=== PATIENT | male | born 1945 | race Caucasian/White ===

== ENCOUNTER → 2016-12-25 | Day surgery (SDC) | payer MEDICARE, BC ==
[~2016-12-25] VITALS: Ht 175.3 cm; Wt 73.0 kg
[~2016-12-25] MED LIST: BUPIVACAINE HCL PF 0.5% 30 ML VIAL ONE; CEPH-460 PO; CHLORHEXIDINE GLUCONATE 2 % 1 PACK (2 CLOTHS) TOPICAL PRN; COLC1TAB7 PO; INSULIN HUMAN REGULAR 1,000 UNITS/10 ML VIAL SQ PRN; LACTATED RINGER'S 1000 ML IV PRN; LIDOCAINE HCL 2% 50 ML VIAL ONE; LOSA100T PO; METO25TA3 PO; METOPROLOL TARTRATE 25 MG TAB PO PRN; MIDAZOLAM HCL 2 MG/2 ML VIAL ONE; NEOMYCIN/POLYMYXIN 1 ML G.U. IRRIGANT ONE; NORC5TAB PO; ONDANSETRON HCL 4 MG/2 ML VIAL IV PUSH ONE; POVIDONE IODINE 5% (ANTISEPSIS KIT) 4 APPLICATIONS EACH NARE PRN; PROPOFOL 200 MG/20 ML AMP IV ONE; SODIUM CHLORID 0.9% 500 ML IV PRN; ceFAZolin 1,000 MG/NS 100 ML IV SCH
[2016-12-25 11:30] LABS: MEAN CELL VOLUME 94.7 FL (80.0-100.0); MEAN CORPUSCULAR HEMOGLOBIN 31.5 PG (27.0-34.0); MEAN CORPUSCULAR HGB CONC 33.3 % (32.0-36.0); PLATELET COUNT 241 TH/MM3 (150-450); RED BLOOD COUNT 4.33 MIL/MM3 (4.50-5.90); RED CELL DISTRIBUTION WIDTH 13.4 % (11.6-17.2); REVIEW FLAG FINAL; WHITE BLOOD COUNT 7.6 TH/MM3 (4.0-11.0)
--- NOTE | 2016-12-25 12:57 | MP ---
cc: JOHN MICHELLE III, M.D. DATE OF SURGERY 12/25/2016 PREOPERATIVE DIAGNOSIS Mass left hand. PROCEDURE 1. Left hand mass and foreign body removal 2. Excisional biopsy left hand SURGEON John Michelle III, MD PROCEDURE The patient was brought to the operating room, placed supine on the operating table. After the correct site and side of surgery were verified by members of each team in the room multiple times including the patient and myself and after preoperative markings and preoperative written consent were verified by everyone, and after an adequate preoperative time out was performed to everyone's satisfaction and after adequate IV sedation had been achieved, the left upper extremity prepped and draped in the traditional sterile surgical fashion. A 50/50 mixture of 2% plain lidocaine, 0.5% Marcaine was infiltrated in the skin and subcutaneous tissue on the dorsal aspect of the hand and to the possible mass. The limb was exsanguinated using an Prasad wrap and a highly placed well-padded axillary tourniquet was inflated to 200 mmHg for 12 minutes. A longitudinally oriented incision dorsally overlying the mass in between the second and third extensor tendons was made and carried down through skin and subcutaneous tissue. Bipolar electrocautery was used as needed. The extensor tendons were retracted in opposite direction leaving the commissure between them intact. Immediately evident was some brawny appearing fatty tissue which was then sharply and bluntly dissected free from the surrounding tissue and during this a large 2 cm foreign body came out from the center of this mass of tissue. This will be given to the patient and his in a sterile specimen cup. There was a small amount of purulence so this was then cultured and passed off the field as specimen. The brawny appearing foreign body reaction was fully excised and passed off the field as a specimen. There were no other sounds inflammatory abnormalities identified. The extensor tendons were all intact and healthy. Thorough irrigation was performed with saline. The skin edges were then loosely reapproximated using interrupted simple and horizontal mattress 4-0 nylon sutures. The hand and arm were thoroughly cleansed and dried. Betadine Adaptic dressings were applied on top of the wounds followed by bulky soft dressing. The patient was awakened from anesthesia and transported to the Post Anesthesia Care Unit awake and in stable condition. Sponge, needle and instrument counts were correct at the end of the case as reported by nurses room. IDENTIFICATION At MD SONAL Vasquez III/DAIANA /12:34 PM /12:40 PM
[2016-12-25 13:45] VITALS: BP 108/64; PULSE 61; RESP 16; TEMP 97.7; O2SAT 100
--- NOTE | 2016-12-25 14:33 | EKG ---
Date Performed: 12/25/2016 Time Performed: 11:08:10 PTAGE: 71 years EKG: SINUS BRADYCARDIA BORDERLINE ECG NO PREVIOUS TRACING DOCTOR: Severiano Portillo Interpretating Date/Time 12/25/2016 14:31:48
== END | disposition home or self-care (01) ==
LOC: PHSDC 10:26
PROVIDERS: ATTEND Orthopaedic Surgery Hand Surgery
DX: M79.5 Residual foreign body in soft tissue (principal); M10.9 Gout, unspecified; I10 Essential (primary) hypertension; Z01.818 Encounter for other preprocedural examination; Z01.810 Encounter for preprocedural cardiovascular examination
CPT/HCPCS: 36415; 85027; 87015; 87070; 87102; 87116; 87205; 87206; 88300; 88305; 93005; J0690; J2250; J2405; J3010; J7120